=== PATIENT | male | born 2000 | race American Indian/Alaskan Native ===

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

== ENCOUNTER 2019-11-14 02:29 | Emergency (ER) | payer SELFPAY ==
[2019-11-14] MEDS ORDERED: LIDOCAINE-MPF (1%) 10 MG/1 ML VIAL 5 ML INFILTRATI ONE (02:51)
[2019-11-14] MEDS ORDERED: IBUPROFEN 600 MG TAB PO ONE (02:51)
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
[2019-11-14] MEDS ORDERED: NEOMY 3.5 MG/BACIT 400 UNITS/POLY B 5000 UNITS/GM OINT PACKET TP ONE (04:34)
[2019-11-14 05:08] VITALS: BP 138/79
== END 2019-11-14 05:18 | disposition home or self-care (01) ==
LOC: ED 02:29
DX: S71.011A Laceration without foreign body, right hip, initial encounter (principal); S50.311A Abrasion of right elbow, initial encounter; F17.200 Nicotine dependence, unspecified, uncomplicated; X58.XXXA Exposure to other specified factors, initial encounter; Y93.89 Activity, other specified; Y92.89 Other specified places as the place of occurrence of the external cause; Y99.8 Other external cause status
CPT/HCPCS: A6250

== ENCOUNTER 2021-11-27 17:35 | Emergency (ER) | payer SELFPAY ==
[2021-11-27 17:44] VITALS: BP 132/75
[2021-11-27 18:02] LABS: Hematocrit 50.5 % (35.5-45.6); Mean Corpuscular HGB Conc 32 % (32-34); Mean Corpuscular Volume 82 fl (84-94); Platelet Count 252 K/mm3 (140-440); Red Blood Count 6.15 M/mm3 (3.65-5.03)
[2021-11-27 18:25] LABS: BUN/Creatinine Ratio 6; Blood Urea Nitrogen 8 mg/dL (9-20); Calcium 9.7 mg/dL (8.4-10.2); Hemolysis Index 8
[2021-11-27 19:14] LABS: Basophils % (Manual) 0 % (0.0-1.8); Eosinophils % (Manual) 0 % (0.0-4.3); RBC Morphology Normal; Total Cells Counted 100
== END 2021-11-28 08:38 | disposition left against medical advice (07) ==
LOC: ED 17:35
DX: R19.7 Diarrhea, unspecified (principal); Z53.21 Procedure and treatment not carried out due to patient leaving prior to being seen by health care provider; R11.10 Vomiting, unspecified
CPT/HCPCS: 36415; 80048; 83690; 85007; 85025